=== PATIENT | female | born 1940 | race Caucasian/White ===

== ENCOUNTER 2016-11-08 02:25 | Inpatient (IN) | payer OTHER, MEDICARE ==
[~2016-11-08] VITALS: Ht 149.9 cm; Wt 61.7 kg
[~2016-11-08 02:25] MED LIST: ASPIRIN EC81 M1 PO; DILTIAZEM 24HR180 MG PO; FERROUS SULFAT325 M3 PO; LATANOPROST2.5 ML OPH; MIRALAX17 G1 PO; RESTASIS1 EACH OPH; TOPROL XL25 M1 PO
--- NOTE | 2016-11-08 14:43 | Admission Core Measures ---
Admission Meds I reviewed the following Meds: Current Medications Sig/Baron Start time Last Medication Dose Stop Time Status Admin Acetaminophen 975 MG ONCE 11/08 NR (Tylenol) 11/08 2358 Cefazolin Sodium 2,000 MG ONCE 11/08 NR (Kefzol-Ancef Inj) 11/08 2358 Diltiazem HCl 180 MG DAILY 11/09 1000 UNVr (Cardizem CD) Latanoprost 1 GTT QPM 11/08 2199 UNVr (Xalatan) Metoprolol Succinate 12.5 MG DAILY 11/09 1000 UNVr (Toprol XL) Oxycodone HCl 10 MG ONCE 11/08 0000 NR (Roxicodone) 11/08 2358 Acute Coronary Syndrome Inclusion Criteria ACS Diagnosis No Inpatient Core Measures LDL Reminder: If No, please order W/I first 24hr of stay Congestive Heart Failure Inclusion Criteria CHF Diagnosis No Cerebrovascular accident Inclusion Criteria CVA/TIA Diagnosis No Inpatient Core Measures Bedside Swallow Eval Reminder: If BSE failed, place ST order Antithrombotic Reminder: Order Antithrombotic Medication by end of day 2 Antithrombotic Reminder: Document Reason Antithrombotic Not ordered by end of day 2 AFIB/Flutter Reminder: If Present, add to problem list AFIB/Flutter Reminder: Order Anticoag Medication for pts with AFIB/Flutter Atherosclerosis Reminder: If Present, add to problem list LDL Reminder: If No, please order W/I first 24hr of stay PT Order Reminder: If No, please order Venous thromboembolism Inpatient Core Measures VTE Risk Factors: Age > 40, Surgery No [facility] VTE prophylaxis d/t No contraindications No VTE Pharm Prophylaxis d/t No contraindications Inclusion Criteria - Per Current guidelines, there needs to be overlap - treatment for the first 5 days of Warfarin therapy. - Parenteral Anticoagulation (IV or SC) needs to be - given along with Warfarin therapy. VTE Diagnosis No VTE Type NONE VTE Confirmed by (Test) NONE Problem List As ranked by this Provider includes Assessment & Plan 1. Unilateral primary osteoarthritis, right hip HOME MEDS Home Med List Aspirin (Ecotrin*) 81 MG TABLET.DR 1 TAB PO DAILY HEART (Reported) Cyclosporine (Restasis) 0.05 % DROPERETTE 1 GTT OPH BID DRY EYE (Reported) Diltiazem HCl (Diltiazem 24HR ER) 180 MG CAP.ER.24H 1 CAP PO DAILY CAD ( Reported) Ferrous Sulfate 325 MG (65 MG IRON) TABLET 1 TAB PO DAILY ANEMIA (Reported) Latanoprost 0.005 % DROPS 1 GTT OPH QPM GLAUCOMA (Reported) Metoprolol Succ XL (Toprol XL) 25 MG TAB 0.5 TAB PO DAILY A FIB (Reported) Polyethylene Glycol 3350 (Miralax) 17 GRAM POWD.PACK 1 PAC PO DAILY CONSTIPATION (Reported)
[2016-11-08] MEDS ORDERED: ASPIRIN EC325 M2 PO (14:48)
[2016-11-08] MEDS ORDERED: DILAUDID2 M1 PO (14:48)
[2016-11-08] MEDS ORDERED: MIRALAX17 G1 PO (14:48)
[2016-11-08] MEDS ORDERED: PROTONIX20 M1 PO (14:48)
[2016-11-08] MEDS ORDERED: COLACE100 M1 PO (14:48)
--- NOTE | 2016-11-08 14:56 | Patient Discharge Instructions ---
Discharge Instructions General Discharge Information You were seen/treated for: R hip pain related to osteoarthritis You had these procedures: Right total hip replacement Watch for these problems: Worsening pain despite pain medication use; increased redness, warmth, or swelling; signs of wound infection/drainage; inability to bear weight on surgical leg; persistent nausea/vomiting; fever> 101 Do not soak the wound: Yes No bath, but you may shower: Yes Other wound care: Keep wound clean and dry. No topical medications/ointments of any kind at or near incision. Daily dry dressing changes. Special Instructions: Take aspirin as directed to prevent postoperative blood clot formation. Take aspirin with food to prevent stomach upset. Narcotic pain medication can cause constipation. Take colace and miralax to prevent this. Stop these stool aids if loose stool/diarrhea develops. Contact your doctor if you do not have a bowel movement for several days or are unable to pass gas. Diet Continue normal diet: Yes Recommended Diet: Regular Activity Activity Self Limited: Yes Pounds, do NOT lift more than: 10 Activity Limited to: Weight bear as tolerated Acute Coronary Syndrome Inclusion Criteria At DC or during hospital stay patient has or had the following: ACS DIAGNOSIS No Discharge Core Measures Meds if any: Prescribed or Continued at Discharge Meds if any: NOT Prescribed or Continued at Discharge Congestive Heart Failure Inclusion Criteria At DC or during hospital stay patient has or had the following: CHF DIAGNOSIS No Discharge Core Measures Meds if any: Prescribed or Continued at Discharge Meds if any: NOT Prescribed or Continued at Discharge Cerebrovascular accident Inclusion Criteria At DC or during hospital stay patient has or had the following: CVA/TIA Diagnosis No Discharge Core Measures Meds if any: Prescribed or Continued at Discharge Meds if any: NOT Prescribed or Continued at Discharge Venous thromboembolism Inclusion Criteria VTE Diagnosis No VTE Type NONE VTE Confirmed by (Test) NONE Discharge Core Measures - Per Current guidelines, there needs to be overlap - treatment for the first 5 days of Warfarin therapy. - If discharged on Warfarin prior to 5 days of - overlap therapy, the patient will need to be - assessed for post discharge needs including - *Post discharge parental anticoagulation - *Warfarin and/or parental anticoagulation education - *Follow up date to check INR post discharge At least 5 days overlap therapy as Inpatient No Meds if any: Prescribed or Continued at Discharge Note: Overlap Therapy is Warfarin and Anticoagulant Meds if any: NOT Prescribed or Continued at Discharge
--- NOTE | 2016-11-08 15:02 | Surgical Discharge Summary ---
Visit Information Visit Dates Admission Date: 11/08/16 Discharge Date: 11/09/16 History of Present Illness Chief Complaint: Right hip pain related to osteoarthritis Medical History Isolation History: Standard Surgical History Pertinent Surgical History: non-contributory Review of Systems: see H&P Hospital Course Course Attending Physician: HUBER BERNSTEIN MD Primary Care Physician: DARLENE VARGAS,[facility] Course: 76yoF underwent elective right total hip replacement by Dr. Bernstein on 11/08/16. Patient tolerated procedure well. Postoperatively, patient was WBAT and OOB with PT. At time of discharge, pain is well controlled with oral pain medications, neurovascular status is intact, and vital signs are stable. Patient is cleared for hospital discharge. Allergies: Coded Allergies: tetanus toxoid, adsorbed (Severe, HIUES 11/02/16) atenolol (? 11/02/16) Disposition Summary Disposition Principal Diagnosis: Right hip unilateral primary osteoarthritis Additional Diagnosis: none Discharge Disposition: home health services Discharge Instructions General Discharge Information Code Status: Full Code Patient's Diet: resume regular healthy diet Patient's Activity: WBAT Follow-Up Instructions/Appts: 6 weeks from date of surgery with Dr. Bernstein Medications at Discharge Discharge Medications: Stop taking the following medications: Polyethylene Glycol 3350 (Miralax) 17 GRAM POWD.PACK ORAL DAILY Aspirin (Ecotrin*) 81 MG TABLET.DR [place] DAILY Continue taking these medications: Diltiazem HCl (Diltiazem 24HR ER) 180 MG CAP.ER.24H 1 Capsule ORAL DAILY Metoprolol Succ XL (Toprol XL) 25 MG TAB 0.5 Tablet ORAL DAILY Cyclosporine (Restasis) 0.05 % DROPERETTE 1 Drop In the eye TWICE DAILY Latanoprost (Latanoprost) 0.005 % DROPS 1 Drop In the eye Every night Instructions: GLAUCOMA Ferrous Sulfate (Ferrous Sulfate) 325 MG (65 MG IRON) TABLET 1 Tablet ORAL DAILY Start taking the following new medications: Aspirin (Ecotrin*) 325 MG TABLET.DR 1 Tablet ORAL TWICE DAILY Qty = 60 No Refills Docusate Sodium (Colace) 100 MG CAPSULE 1 Capsule ORAL TWICE DAILY Days = 7 No Refills Instructions: STOP TAKING IF YOU DEVELOP LOOSE STOOL/DIARRHEA Hydromorphone HCl (Dilaudid) 2 MG TABLET 1-2 Tablet ORAL EVERY 4-6 HOURS NEEDED as needed for PAIN Qty = 36 No Refills Polyethylene Glycol 3350 (Miralax) 17 GRAM POWD.PACK 1 Packet ORAL DAILY Days = 7 No Refills Instructions: dissolve in water. STOP TAKING IF YOU DEVELOP LOOSE STOOL/DIARRHEA Pantoprazole Sodium (Protonix) 20 MG TABLET.DR 1 Tablet ORAL DAILY Qty = 30 No Refills
--- NOTE | 2016-11-08 16:07 | RADIOLOGY REPORT ---
EXAMINATION: XR HIP, RIGHT CLINICAL INFORMATION: Status post right THR. COMPARISON: None TECHNIQUE: Two views of the right hip. FINDINGS: Total hip replacement. Acetabular and femoral components in position. Surgical drain in place. Air in the soft tissues from recent surgery. IMPRESSION: Status post right total hip replacement.
--- NOTE | 2016-11-08 16:34 | Operative Report ---
Operative/Inv Procedure Report Surgery Date: 11/08/16 Name of Procedure: Right total hip replacement Pre-Operative Diagnosis: Primary right hip DJD Post-Operative Diagnosis: Same Estimated Blood Loss: 300 Surgeon/Senior Research Project Manager: DAY VARGAS,HUBER Almonte Anesthesia: block Operative/Procedure Note Note: Description of Procedure: The patient was taken to the operating room and positively identified. After induction of spinal anesthesia and administration of appropriate pre-operative antibiotics, the patient was positioned supine on the operating room table and all bony prominences were well padded. After performing a surgical timeout, the right lower extremity was prepped and draped in the usual sterile fashion. A direct anterior approach was made to the right hip. The incision was carried sharply through superficial soft tissues to the level of the fascia. Meticulous hemostasis was maintained with Bovie electocautery. The fascia over the tensor fascia blanca muscle was opened sharply and the interval between the TFL and the sartorius was entered bluntly taking care to stay lateral to the lateral femoral cutaneous nerve. Retractors were placed around the femoral neck and the pericapsular fat was identified. The ascending branches of the lateral femoral circumflex vessels were identified and carefully coagulated. The pericapsular fat and anterior capsule were then resected. A napkin ring osteotomy was performed and the femoral head was removed without difficulty. Attention was then turned to the acetabulum. After appropriate placement of retractors, the acetabulum was exposed. Soft tissue was cleaned from the acetabular margin and notch. Overhanging osteophytes were removed and the teardrop was exposed. The acetabulum was then sequentially reamed to accept a 52 mm Elton Tritanium hemispherical cluster hole shell. This was impacted into place in the appropriate position and fitted with a 36 mm Trident X3 zero degree polyethylene insert. Attention was then turned to the femur. After performing the appropriate ligament releases, the proximal femur was exposed. It was then sequentially broached to accept a size 4 Elton accolade 2 stem. This was trialed for leg length and stability. The trial component was removed and the final component was impacted into place. The trunnion was carefully cleaned and fit with a 36 mm, -2.5 Biolox delta ceramic femoral head. The hip was reduced and put through a full range of motion and found to be stable. The articular space was then irrigated with sterile saline. The periarticular soft tissues were infilitrated with Marcaine. The fascial layer was closed with interrupted #1 vicryl suture and the skin was re-approximated with interrupted 2 -0 vicryl. The skin was closed with a running 3-0 V-Lock suture. Steri-strips and a sterile dressing were applied. The patient was awakened and taken to the recovery room in satisfactory condition.
[2016-11-08 16:44] LABS: ABSOLUTE BASOPHIL COUNT 0 /CUMM (0.0-0.2); ABSOLUTE EOSINOPHIL COUNT 0 /CUMM (0.0-0.7); ABSOLUTE GRANULOCYTE CT 8.9 /CUMM (1.4-6.5); ABSOLUTE MONOCYTE COUNT 0.2 /CUMM (0.10-0.60); BASOPHIL % 0.2 % (0.0-2.0); EOSINOPHIL % 0.4 % (0-5); HEMATOCRIT 33.2 % (37-47); MEAN CORPUSCULAR HGB 30.1 PG (27.0-31.0); MEAN CORPUSCULAR HGB CONC 33.7 G/DL (33.0-37.0); MEAN CORPUSCULAR VOLUME 89.3 FL (81.0-99.0); MEAN PLATELET VOLUME 8.4 FL (7.4-10.4); PLATELET COUNT 277 /CUMM (130-400); RBC DISTRIBUTION WIDTH 13.4 % (11.5-14.5); RED BLOOD CELL CT 3.71 /CUMM (4.20-5.40); WHITE BLOOD CELL COUNT 10.1 /CUMM (4.8-10.8)
[2016-11-08 17:06] LABS: GRANULOCYTE % 87.4 % (42.2-75.2)
[2016-11-08 18:10] VITALS: BP 132/80
[2016-11-08 19:48] VITALS: BP 128/62
[2016-11-08 21:52] VITALS: BP 110/62
[2016-11-09 00:30] VITALS: BP 128/62
[2016-11-09 03:59] VITALS: BP 110/64
[2016-11-09 06:16] VITALS: BP 130/74
[2016-11-09 08:01] LABS: ABSOLUTE BASOPHIL COUNT 0 /CUMM (0.0-0.2); ABSOLUTE EOSINOPHIL COUNT 0 /CUMM (0.0-0.7); ABSOLUTE LYMPH COUNT 0.8 /CUMM (1.2-3.4); ABSOLUTE MONOCYTE COUNT 0.5 /CUMM (0.10-0.60); BASOPHIL % 0 % (0.0-2.0); EOSINOPHIL % 0 % (0-5); HEMATOCRIT 32.7 % (37-47); MEAN CORPUSCULAR HGB 30.2 PG (27.0-31.0); MEAN CORPUSCULAR HGB CONC 33.3 G/DL (33.0-37.0); MEAN CORPUSCULAR VOLUME 90.6 FL (81.0-99.0); PLATELET COUNT 286 /CUMM (130-400); RBC DISTRIBUTION WIDTH 13.7 % (11.5-14.5); RED BLOOD CELL CT 3.62 /CUMM (4.20-5.40); WHITE BLOOD CELL COUNT 11.3 /CUMM (4.8-10.8)
[2016-11-09 09:16] LABS: GRANULOCYTE % 88.3 % (42.2-75.2)
--- NOTE | 2016-11-09 10:10 | PN- Orthopedic ---
Subjective Subjective: NO COMPLAINTS. SHE STATES SHE IS COMFORTABLE SEEN BY PT TODAY, REPORTED THAT DID WELL Objective Vital Signs and I&Os Vital Signs Date Time Temp Pulse Resp B/P B/P Pulse O2 O2 Flow FiO2 Mean Ox Delivery Rate 11/10 615 98.8 76 22 130/74 95 Room Air 11/09 0359 97.7 67 20 110/64 96 Room Air 11/09 0030 97.6 73 20 128/62 96 Room Air 11/08 2152 96 Room Air 11/09 2151 97.4 71 20 110/62 96 Nasal 2.0L Cannula 11/08 1948 98.5 64 18 128/62 99 Nasal 2.0L Cannula 11/08 1809 100 Nasal 2.0L Cannula 11/08 1809 97.8 62 18 132/80 100 Nasal 2.0L Cannula Intake & Output 11/09 1600 11/09 0800 11/09 0000 11/08 1600 11/08 0800 11/08 0000 Intake Total 720 345 Output Total 450 500 Balance 270 -155 Intake, IV 600 225 Intake, Oral 120 120 Output, Urine 450 500 Patient 136 lb Weight Weight Reported by Patient Measurement Method ALERT, ORIENTED, APPROPRIATE, LOOKS COMFORTABLE LUNGS CLEAR BILAT COR REGULAR ABDOMEN BENIGN R LE WITH DRESSING ON C/D/I. HEMOVAC IN PLACE WITH SEROSANG. FLUID APPROXIMATELY 75CC SINCE SURGERY R LE WITH ADEQUATE NEUROVASCULAR PERFUSION ; ROM EXPECTED, ADEQUATE SENSATION. Assessment/Plan Assessment/Plan S/P RHIP THR FOR DJD POD#1 STABLE HEMODYNAMICS WOUND WITHOUT INFECTION HEMOVAC DRAINAGE EXPECTED. HEMOVAC REOMVED WITHOUT PROBLEMS.DRESSING CHANGE TOMORROW PAIN WELL CONTROLLED WITH ORAL DILAUDID. PT. SEEN BY PT , CLEARED VERBALLY FOR DISCHARGE HOME. Core Measures/Miscellaneous Venous Thromboembolism VTE Risk Factors: Age > 40, Surgery VTE Contraindications: No Contraindications VTE Diagnosis: No VTE Type: NONE VTE Confirmed by (Test): NONE Beta Yesi Is Beta Yesi a Home Med? Yes If Yes, Was This Ordered Today? Yes Antibiotics Is Patient on Antibiotics? Yes If Yes: prophylaxis
== END 2016-11-09 11:30 | disposition home health service (06) | DRG 470 ==
LOC: SDA 02:25 → ENRESERV 17:04 → 2NB 17:58 → ENPENDDIS 11-09 10:26 → 2NB 11-09 11:30
PROVIDERS: Physician Assistant Surgical; ADMIT Orthopaedic Surgery
PROC: 0SR904A Replacement of Right Hip Joint with Ceramic on Polyethylene Synthetic Substitute, Uncemented, Open Approach (ICD-10-PCS; principal; 2016-11-08)
DX: M16.11 Unilateral primary osteoarthritis, right hip (principal); I48.2 Chronic atrial fibrillation; I10 Essential (primary) hypertension; E03.9 Hypothyroidism, unspecified
CPT/HCPCS: 2NBSP; 36415; 73502-RT; 82436; 88304; 97116-GO; 97161-GP; 97530-GO; J0131; J0690; J0735; J1100; J1630; J2405; J2550; J7042